=== PATIENT | female | born 1960 | race Caucasian/White ===

== ENCOUNTER 2018-11-02 14:30 | Inpatient (IN) | payer OTHER ==
[~2018-11-02] VITALS: Ht 165.1 cm; Wt 54.6 kg
[2018-11-02 15:30] VITALS: BP 164/85; PULSE 76; TEMP 98.8
[2018-11-02] MEDS ORDERED: BUSPAR5 MG (16:33)
[2018-11-02] MEDS ORDERED: DEPAKOTE500 MG PO (16:33)
[2018-11-02] MEDS ORDERED: FIORICET 325 MG1 TA1 PO (16:34)
[2018-11-02] MEDS ORDERED: PREMARIN 0.9MG0.9 MG PO (16:35)
[2018-11-02] MEDS ORDERED: SYNTHROID0.1 MG/TAB PO (16:36)
[2018-11-02] MEDS ORDERED: PROZAC 20MG20 MG PO (16:36)
[2018-11-02] MEDS ORDERED: VISTARIL50 MG PO (16:37)
[2018-11-02] MEDS ORDERED: ZANTAC 150MG T150 MG PO (16:37)
[2018-11-02] MEDS ORDERED: DIPROLENE OI 15GM (16:38)
[2018-11-02] MEDS ORDERED: MAALOX MAX + ANT1 ML (16:40)
[2018-11-02 18:22] VITALS: BP 119/58; PULSE 83
[2018-11-02 18:52] VITALS: BP 164/85; PULSE 76; TEMP 98.8
[2018-11-02 19:21] VITALS: BP 116/69; PULSE 69; TEMP 98.3
[2018-11-03 03:52] VITALS: BP 132/65; PULSE 83; TEMP 98.2
[2018-11-03 06:00] LABS: HEMOGLOBIN 12.9 g/dl (12.5-16.0); MEAN CELL VOLUME 92 fl (80.0-100.0); MEAN CORPUSCULAR HEMOGLOBIN 33 pg (27.0-31.0); MEAN CORPUSCULAR HGB CONC 36 g/dl (33.0-37.0); MEAN PLATELET VOLUME 9.2 fl (7.4-10.4); PLATELET COUNT 244 K/mm3 (130-400); RED BLOOD COUNT 3.94 M/mm3 (4.10-5.30); REDCELL DISTRIBUTION WIDTH-CV 13.1 % (11.5-14.5)
[2018-11-03 06:02] LABS: ALBUMIN 3.6 gm/dL (3.5-5.0); BILIRUBIN,TOTAL 0.5 mg/dL (0.0-1.0); CREATININE, serum 0.7 mg/dL (0.52-1.25); POTASSIUM 3.6 mmol/L (3.4-5.0); TOTAL PROTEIN 6.4 gm/dL (6.4-8.2)
[2018-11-03 06:09] LABS: HEMATOCRIT 36.1 % (37.0-47.0)
[2018-11-03 07:09] LABS: BAND 2 % (0-10); LYMPHOCYTE 25 % (20.0-51.0); NEUTROPHILS 72 % (42.0-75.2)
[2018-11-03 07:10] LABS: PLATELET ESTIMATE NORMAL (NORMAL)
[2018-11-03 09:07] VITALS: BP 138/79; PULSE 70; TEMP 98.7
[2018-11-03 11:08] VITALS: BP 126/67; PULSE 66; TEMP 98.1
[2018-11-03 15:30] VITALS: BP 129/62; PULSE 66; TEMP 98.9
[2018-11-03 20:15] VITALS: BP 148/71; PULSE 66; TEMP 98.4
[2018-11-04] VITALS (12 sets, daily range): BP systolic 90–141; BP diastolic 51–76; PULSE 70–83; TEMP 98–99.5
[2018-11-04 07:53] LABS: HEMATOCRIT 37.9 % (37.0-47.0); HEMOGLOBIN 13.4 g/dl (12.5-16.0); MEAN CELL VOLUME 92 fl (80.0-100.0); MEAN CORPUSCULAR HEMOGLOBIN 33 pg (27.0-31.0); MEAN CORPUSCULAR HGB CONC 35 g/dl (33.0-37.0); PLATELET COUNT 228 K/mm3 (130-400); REDCELL DISTRIBUTION WIDTH-CV 12.9 % (11.5-14.5)
[2018-11-04 07:59] LABS: ALBUMIN 3.3 gm/dL (3.5-5.0); BILIRUBIN,TOTAL 0.6 mg/dL (0.0-1.0); CALCIUM 8.6 mg/dL (8.4-10.2); CREATININE, serum 0.73 mg/dL (0.52-1.25); POTASSIUM 3.5 mmol/L (3.4-5.0)
[2018-11-04 09:03] LABS: BAND 3 % (0-10); LYMPHOCYTE 10 % (20.0-51.0); NEUTROPHILS 82 % (42.0-75.2); PLATELET ESTIMATE NORMAL (NORMAL)
[2018-11-05] VITALS (7 sets, daily range): BP systolic 101–138; BP diastolic 48–74; PULSE 66–80; TEMP 98.1–98.9
[2018-11-05 06:23] LABS: HEMATOCRIT 33.6 % (37.0-47.0); HEMOGLOBIN 11.8 g/dl (12.5-16.0); MEAN CELL VOLUME 93 fl (80.0-100.0); MEAN CORPUSCULAR HEMOGLOBIN 33 pg (27.0-31.0); MEAN CORPUSCULAR HGB CONC 35 g/dl (33.0-37.0); MEAN PLATELET VOLUME 9.5 fl (7.4-10.4); PLATELET COUNT 196 K/mm3 (130-400); RED BLOOD COUNT 3.62 M/mm3 (4.10-5.30); REDCELL DISTRIBUTION WIDTH-CV 12.8 % (11.5-14.5)
[2018-11-05 06:29] LABS: ALBUMIN 2.9 gm/dL (3.5-5.0); BILIRUBIN,TOTAL 0.5 mg/dL (0.0-1.0); CALCIUM 8.1 mg/dL (8.4-10.2); CREATININE, serum 0.77 mg/dL (0.52-1.25); TOTAL PROTEIN 5.4 gm/dL (6.4-8.2)
[2018-11-05 07:02] LABS: BAND 8 % (0-10); LYMPHOCYTE 10 % (20.0-51.0); NEUTROPHILS 75 % (42.0-75.2); PLATELET ESTIMATE NORMAL (NORMAL)
[2018-11-06 04:06] VITALS: BP 117/57; PULSE 81; TEMP 97
[2018-11-06 08:45] VITALS: BP 159/73; PULSE 65; TEMP 98.5
[2018-11-06 12:19] VITALS: BP 117/70; PULSE 68; TEMP 98.1
[2018-11-06 17:05] VITALS: BP 159/82; PULSE 66; TEMP 98.8
[2018-11-06 20:34] VITALS: BP 169/69; PULSE 68; TEMP 98.9
[2018-11-06 23:55] VITALS: BP 128/77; PULSE 63; TEMP 98.3
[2018-11-07 03:26] VITALS: BP 145/75; PULSE 61; TEMP 98.4
[2018-11-07 07:33] VITALS: BP 157/85; PULSE 60; TEMP 97.9
[2018-11-07] MEDS ORDERED: PERCOCET 325 MG1 TA2 PO (08:49)
[2018-11-07] MEDS ORDERED: MOTRIN 600600 MG/TAB PO (08:50)
[2018-11-07] MEDS ORDERED: COLACE 100100 MG/CAP PO (08:50)
== END 2018-11-07 10:50 | disposition home or self-care (01) | DRG 337 ==
LOC: SURG 14:30
PROVIDERS: Surgery
PROC: 0DNC0ZZ Release Ileocecal Valve, Open Approach (ICD-10-PCS; principal; 2018-11-04 16:30)
DX: K56.51 Intestinal adhesions [bands], with partial obstruction (principal); F17.210 Nicotine dependence, cigarettes, uncomplicated; F41.8 Other specified anxiety disorders; E16.2 Hypoglycemia, unspecified; F39 Unspecified mood [affective] disorder
CPT/HCPCS: A4314; A9284; J0360; J0694; J1100; J1170; J1650; J1885; J2270; J2405; J2704; J3010; J7120